=== PATIENT | male | born 1970 | race African-American/Black ===

== ENCOUNTER 2022-02-17 08:32 | Day surgery (SDC) | payer MEDICAID ==
[~2022-02-17] VITALS: Ht 177.8 cm; Wt 89.9 kg
[~2022-02-17 08:32] MED LIST: TAMS-13 PO
[2022-02-17] MEDS ORDERED: SODIUM CHLORIDE 0.9% 1,000 ML IV ONE (09:00)
[2022-02-17] MEDS ORDERED: SODIUM CHLORIDE 0.9% 1,000 ML ONE (09:05)
[2022-02-17 09:27] LABS: COVID AG,FIA SOURCE NASAL SWAB
[2022-02-17] MEDS ORDERED: PROPOFOL 1% 20 ML VIAL IVP ONE (12:00)
[2022-02-17] MEDS ORDERED: LIDOCAINE/PF 2% 5 ML VIAL IM ONE (12:00)
[2022-02-17] MEDS ORDERED: OXYGEN THERAPY IH SCH ×2 (20:00)
== END 2022-02-17 12:20 | disposition home or self-care (01) ==
LOC: SURGERY 08:32
PROVIDERS: ATTEND Specialist
DX: D12.0 Benign neoplasm of cecum (principal); K62.1 Rectal polyp; Z20.822 Contact with and (suspected) exposure to COVID-19; Z98.890 Other specified postprocedural states; Z79.899 Other long term (current) drug therapy
CPT/HCPCS: 45380; 45385; 87426; C1769; J2704; J3490; J7030; C9803